=== PATIENT | male | born 1945 | race Caucasian/White ===

== ENCOUNTER 2016-05-28 11:01 | Emergency (ER) | payer MEDICARE ==
[~2016-05-28] VITALS: Ht 170.2 cm; Wt 70.5 kg
--- NOTE | 2016-05-28 11:07 | ED.REPORT ---
HPI-Syncope Date of Service May 28, 2016 ED Provider: Dr. Morris Pt is a 70 y/o male w/ a hx of HTN, recent CABG x2, presenting to the ED due to syncopal episode prior to arrival. The pt was in a cardiac rehab appointment in the hospital today after having a two-way CABG performed last week and began to feel lightheaded while on an exercise bike. He then got off the bike and felt lightheaded and dizzy and experienced a syncopal episode. Rapid response team was called and he was brought to the ED. He ate only a small nutrition bar for breakfast this morning at 0545. His Metoprolol dose was stopped a couple weeks ago and restarted 1 week ago. He denies CP, palpitations, fever, chills, SOB, bloody stool, hematuria. Nursing Notes Stated Complaint: DECREASED LOC Nursing Notes Reviewed: Yes ([employer], Detect[employer] not reconciled) Allergies: Coded Allergies: No Known Allergies (Unverified , 05/28/16) General Time Seen by Provider: 11:09 Chief Complaint Other (Syncope) Syncope Description: Single episode Hx Obtained From: Patient Arrived By: Wheelchair Onset Occurred: Just prior to arrival Symptom Duration: Since onset Progression Since Onset: Gradually improving Severity: Current: No pain currently Severity: Maximum: No pain Past Medical History Past Medical History CAD s/p CABG History of mild asthma History of BPH History of spinal stenosis and chronic low back pain Hyperlipidemia Mild hypertension Past Surgical History CABG x2 at [facility] Apr 2016 Ambulatory Status Independent Review of Systems Constitutional: Denies: Chills, Fever Respiratory: Denies: Shortness of breath Cardiovascular: Denies: Chest pain GI: Denies: Abdominal pain, Bloody/tarry stool, Nausea, Vomiting Neurologic: Reports: Dizziness, Lightheaded, Syncope Complete sys rev & neg: except as marked. Additional Review of Systems Male: Denies Hematuria Physical Exam Initial Vital Signs Vital Signs (First) Date Time Temp Pulse Resp B/P Pulse Ox O2 Delivery O2 Flow Rate FiO2 05/28/16 11:15 65 13 97/61 100 Nasal Cannula 4 05/28/16 11:17 36.5 Initial VS: Reviewed (no vitals on chart, ordered), Unavailable Head / Eyes: Atraumatic, Normocephalic, PERRL ENT: Mucous membranes moist, Conjunctiva normal, No scleral icterus Neck: Supple, Non-tender, Full range of motion Abdomen / GI: Soft, Non-tender, No guarding, No rebound, No distention Upper Extremities: Vascular intact, Neuro intact, No swelling, No tenderness Skin: Warm, Dry, No cyanosis Psychiatric: Mood/affect normal, Behavior normal, Normal thought content General/Constitutional: Awake, Alert, No acute distress, Well appearing, Cooperative, Not toxic appearing Respiratory / Chest: Atraumatic, Breath sounds NL, Breath sounds = bilat, No respiratory distress, No rales, No rhonchi, No wheezing, No retractions, No stridor, No chest tenderness, No chest wall deformity, No crepitus Recently healing surgical scar from CABG Cardiovascular: Heart rate NL, Regular rhythm, Heart sounds NL, No gallop, No murmurs, No rubs, Cap refill not delayed, Peripheral circulation NL Lower Extremity / Pelvis / MS: Atraumatic, Full range of motion, No swelling, No deformity, Neurologic intact, Vascular intact, No edema Neurologic: Oriented X3, Speech NL, No motor deficits, No sensory deficits, CN II - XII intact, Memory NL Interpretation & Diagnostics Lab Results Interpretation Result Diagram: 05/28/16 1112 05/28/16 1112 Test 05/28/16 11:12 White Blood Count 13.0th/mm3 (3.8-10.1) Red Blood Count 4.60mil/mm3 (4.40-5.80) Hemoglobin 13.3g/dL (13.8-17.2) Hematocrit 40.0% (41.0-50.0) Mean Corpuscular Volume 87.0fL (81-100) Mean Corpuscular Hemoglobin 28.9pg (27.0-35.0) Mean Corpuscular Hemoglobin Concent 33.3% (32.0-37.0) Red Cell Distribution Width 12.6% (12.3-15.4) Platelet Count 334bil/L (150-400) Neutrophils (%) (Auto) 54.4% (40-74) Lymphocytes (%) (Auto) 31.0% (14-46) Monocytes (%) (Auto) 9.9% (4-12) Eosinophils (%) (Auto) 3.8% (0-5) Basophils (%) (Auto) 0.6% (0-3) Sodium Level 138mEq/L (134-144) Potassium Level 4.4mEq/L (3.5-5.2) Chloride Level 98mEq/L (97-108) Carbon Dioxide Level 22mmol/L (18-29) Blood Urea Nitrogen 21mg/dL (8-27) Creatinine 1.00mg/dL (0.76-1.27) Estimat Glomerular Filtration Rate 79mL/min (>59) Glucose Level 127mg/dL (60-99) Calcium Level 9.3mg/dL (8.5-10.1) Magnesium Level 1.9mg/dL (1.6-2.6) Total Bilirubin 0.3mg/dL (0.0-1.2) Aspartate Amino Transf (AST/SGOT) 15U/L (0-50) Alanine Aminotransferase (ALT/SGPT) 19U/L (0-44) Alkaline Phosphatase 131U/L (25-160) Troponin T < 0.010ug/L (0.0-0.011) Total Protein 6.8g/dL (6.4-8.4) Albumin 4.1g/dL (3.4-5.0) Hold Junior Top Tube Received (Received) Lab Results Interpretation: CBC mild leukocytosis, likely [id number] clinical findings of infection or evidence CMP normal Troponin negative ECG Interpretation ECG Interpretation: Sinus rhythm rate 67 Borderline RBBB Nonspecific T wave inversions in inferior and anterior leads No prior available for comparison (I was later able to obtain a pre-CABG EKG, the nonspecific T-wave abnormalities are new, but there has been intervening CABG in recent weeks) Time: 11:36 Interpreted by: ED physician Normal ECG Interpretation: No acute ischemic changes X-Ray Chest Interpretation Chest Xray Interpretation: IMPRESSION: No acute process. Dictated by: Megha Miller M.D. on 05/28/2016 at 11:35 Approved by: Megha Miller M.D. on 05/28/2016 at 11:35 View: Portable, 1 view Interpretation / Wet Read by: Interpret - Radiologist Re-Eval/Medical Decision Med Decision/Clinical Course This is a 70-year-old male who on weeks ago underwent a CABG at [facility] was doing cardiac rehabilitation today when he finished rehabilitation was recovering, felt lightheaded and had a witnessed syncopal episode in front of rehabilitation staff in the family. He reports no chest pain, no pleuritic discomfort, no shortness of breath - reports he simply felt very warm. By all subsequent reports he went unconscious for a brief work. But then rapidly recovered-upon recovery he denied any chest pain or shortness of breath. He is part of a rapid response team, and brought directly to the emergency department at that point. On arrival he denies any complaints. He denies any recent fevers chills or infectious symptoms. He denies any bleeding, blood loss, need for transfusion following his surgery. Leg swelling , history of DVT or PE. And again he denies chest pain, shortness of breath. His blood pressure was in the low 90s on arrival. He does note that he was discharged from the hospital on metoprolol, but had to be DC'd because his blood pressure was low-risk, however it had subsequently come up again and he was then restarted a week ago with instructions not to take it if his blood pressure was less than 100. He had no specific findings on his EKG, his blood work and labs are normal, and his chest x-ray was normal. She received gentle hydration and his blood pressure normalized. He remained entirely asymptomatic throughout his ED course. He is in road tested, he was not orthostatic, and was entirely asymptomatic. I am not finding signs of complications such as a PE, bleed, infection. Apparently the patient was placed on a monitor as soon as this happened, and no dysrhythmia was identified. Given the low blood pressure, I am suspicious that this may possibly be medication induced, particularly given the incident with his metoprolol today having been withheld, and then reinitiated with low blood pressures. The patient had a long period of observation, had no dysrhythmic events no recurrence I think is a reasonable candidate for discharge home. I have obtained his records from [facility] and reviewed reviewed them. The plan is discharged home, and instructions to stop his metoprolol, until you follow up with his commercial real estate manager which is scheduled in a week and a half. Routine precautions reviewed. Patient's discharged normotensive and in the company of his in good condition. Source of Hx: Old records Re-Evaluation/Progress : Time of Eval: 13:33 Re-Evaluation/Progress Note: Pt rechecked. He is feeling up to his baseline now. He states that he has been taking his BP medication every 8 hours instead of every 12 and that the patient support representative cardiac rehab combined with his medication likely has caused this. Informed pt of plan for treatment. Pt understands and agrees with plan for treatment. F/U and RTER warnings given. All questions addressed. Differential Diagnosis: Positive: Vasovagal syncope, Negative: Abdominal aortic aneurysm, Acute coronary syndrome, Anemia, Arrhythmia, Cerebrovascular accident, Dehydration, Dysrhythmia, Electrolyte disorder, Head trauma, Intracranial bleed, Pneumothorax, Prolonged QT syndrome, Pulmonary embolus, Subarachnoid hemorrhage, Thoracic aortic dissect Counseled Regarding: Diagnosis, Lab results, Need for follow-up, When/why to return to ED Discharge & Departure Impression: Primary Impression: Syncope Syncope type: unspecified Qualified Code: R55 - Syncope and collapse Disposition: Home Discharge Condition All VS Reviewed: Yes Condition: Stable Additional Instructions: 1. I suspect your syncope today (the medical term for passing out) a be due from a low blood pressure. (Your blood pressure was 95 systolic initially in the ED) 2. Blood tests, and x-ray were normal. 3. I recommend STOPPING the metoprolol again (the same medicine that was recently stopped for the low blood pressure previously, and then restarted just last week). Continue your other medications. Her appointment with the commercial real estate manager for the end of the month. (It is possible, but over time the your commercial real estate manager may want to restart your metoprolol at a low dose, as it is a very protective medicine) 4. Take it easy today. Otherwise activities as tolerated. 5. Return if new or worsening symptoms Referrals: Stephany Canela MD (PCP) Jimibmarija Attestation Portions of this note were transcribed by Diogo Bishop. I, Dr. Morris personally performed the history, physical exam and medical decision-making; I reviewed and confirmed the accuracy of the information in the transcribed note. Signed by Irais Sanchez, 05/28/16 - 1200 copies to: Stephany Canela MD, Matthew F MD May 28, 2016 11:07 DIOGO BISHOP May 28, 2016 11:15
[2016-05-28 11:15] VITALS: BP 97/61; PULSE 65; RESP 13; O2SAT 100
[2016-05-28 11:16] LABS: BASOPHILS % (AUTO) 0.6 % (0-3); EOSINOPHILS % (AUTO) 3.8 % (0-5); MONOCYTES % (AUTO) 9.9 % (4-12); Mean Corpuscular Hemoglobin 28.9 pg (27.0-35.0); NEUTROPHILS % (AUTO) 54.4 % (40-74); Platelet Count 334 bil/L (150-400)
[2016-05-28 11:17] VITALS: BP 94/65; PULSE 67; RESP 18; O2SAT 97
[2016-05-28] MEDS ORDERED: 0.9% Sodium Chloride 500 ML IV ONE (11:25)
[2016-05-28 11:37] VITALS: BP 110/70; PULSE 65; RESP 13; O2SAT 100
--- NOTE | 2016-05-28 11:37 | DRSVH ---
PROCEDURE: X-RAY CHEST ONE VIEW, PORTABLE ([id number]) INDICATIONS: syncope TECHNIQUE: One view of the chest was acquired. COMPARISON: None. FINDINGS: Surgical changes and devices: Median sternotomy. Lungs and pleura: No pleural effusions or pneumothorax. Lungs are clear. Mediastinum: Mediastinal contours appear normal. Heart size is normal. Bones and chest wall: No suspicious bony lesions. Overlying soft tissues appear unremarkable. IMPRESSION: No acute process. Dictated by: Megha Miller M.D. on 05/28/2016 at 11:35 Approved by: Megha Miller M.D. on 05/28/2016 at 11:35
[2016-05-28 12:07] LABS: Magnesium 1.9 mg/dL (1.6-2.6); TROPONIN T < 0.010 ug/L (0.0-0.011)
[2016-05-28 12:20] VITALS: BP 108/67; PULSE 66; RESP 16; O2SAT 100
[2016-05-28 13:32] VITALS: BP 110/69; PULSE 66; RESP 16; O2SAT 99
== END 2016-05-28 13:33 | disposition home or self-care (01) ==
LOC: SED 11:01
DX: R55 Syncope and collapse (principal); R03.1 Nonspecific low blood-pressure reading; I10 Essential (primary) hypertension; I25.10 Atherosclerotic heart disease of native coronary artery without angina pectoris; Z95.1 Presence of aortocoronary bypass graft
CPT/HCPCS: 36415; 71010; 80053; 83735; 84484; 85025; 99285; J7040